=== PATIENT | female | born 1950 | race African-American/Black ===

== ENCOUNTER 2018-05-11 05:50 | Emergency (ER) | payer OTHER ==
[~2018-05-11] VITALS: Ht 160 cm; Wt 56.7 kg
[~2018-05-11 05:50] MED LIST: ATIVAN1 MG PO; CALCITRIOL0.5 MCG PO; CARDIZEM CD240 MG PO; CEFTIN 250 MG250 MG PO; CELEXA 10 MG TA10 M1 PO; CEPACOL SORE T1 EAC7 PO; CEPASTAT CHERR18 TA2 PO; CLONIDINE0.1 PO; COL-RITE100 MG PO; COREG25 MG PO; DEMADEX20 MG PO; DEX4 GLUCOSE1 EACH PO; DULCOLAX5 MG PO; DUONEB 2.5-0.5 M3 ML INH; FERRLECIT62.5 MG/2 IV; GLUCAGEN1 M2 IJ; HALOPERIDOL10 MG PO; HYDRALAZINE 2525 MG PO; HYDROCODONE-AP1 EAC6 PO; LASIX 80 MG TAB80 MG PO; LISINOPRIL10 MG PO; LORATIDINE 10 M10 M1 PO; LOXAPINE5 MG PO; MELATIN3 MG PO; MIRALAX17 GM PO; NEPHROCAPS SOFT1 CAP PO; NORCO 5-325 TA1 EACH PO; NOVOFINE INJECTION; NOVOLOG100 UNIT/1 SUBQ; ONDANSETRON HCL4 M2 PO; PRILOSEC20 MG PO; PROCRIT20000 UNIT IJ; PROTONIX40 M1 PO; REGLAN 10 MG TA10 MG PO; RENO CAPS SOFTGE1 MG PO; RENVELA800 MG PO; RISPERDAL 1 MG T1 MG PO; RISPERDAL0.5 MG PO; SIMETHICON CHEW80 M1 PO; TRAZODONE HCL50 MG PO; TRIHEXYPHENIDYL2 M1 NG; TRIHEXYPHENIDYL2 M1 PO; TUMS PO; TYLENOL325 MG PO; VENTOLIN HFA 1818 GM INH; ZESTRIL40 MG PO; ZOLOFT50 MG PO; [UNRECOGNIZED DRUG - CODE] IJ
[2018-05-11 05:54] VITALS: BP 160/62
[2018-05-11] MEDS ORDERED: EPOGEN2000 UNIT/ INJECTION (06:14)
[2018-05-11] MEDS ORDERED: CEPACOL SORETH1 EAC1 PO (06:17)
[2018-05-11] MEDS ORDERED: ROBITUSSIN100 MG/53 PO (06:19)
[2018-05-11] MEDS ORDERED: TESSALON PERLE100 MG PO (06:41)
== END 2018-05-11 06:51 ==
LOC: ER 05:50
DX: J06.9 Acute upper respiratory infection, unspecified (principal); R51 Headache; E11.9 Type 2 diabetes mellitus without complications; F20.9 Schizophrenia, unspecified; I11.0 Hypertensive heart disease with heart failure; I50.9 Heart failure, unspecified; K21.9 Gastro-esophageal reflux disease without esophagitis; F17.210 Nicotine dependence, cigarettes, uncomplicated; Z88.6 Allergy status to analgesic agent; Z88.8 Allergy status to other drugs, medicaments and biological substances

== ENCOUNTER 2019-04-27 12:28 | Emergency (ER) | payer OTHER ==
[~2019-04-27] VITALS: Ht 160 cm; Wt 51.3 kg
[~2019-04-27 12:28] MED LIST changes: +CEPACOL SORETH1 EAC1 PO; +EPOGEN2000 UNIT/ INJECTION; +ROBITUSSIN100 MG/53 PO; +TESSALON PERLE100 MG PO
[2019-04-27 15:21] LABS: HEMATOCRIT 36.3 % (37.0-47.0); HEMOGLOBIN 11.9 gm/dL (12.0-15.0); MCHC 32.8 g/dL (28.0-37.0); MCV 88.2 fL (80.0-100.0); PLATELET COUNT 214 thou/uL (150-400); RBC 4.11 mil/uL (4.20-5.00); RDW 15.7 % (10.5-14.5); WBC 5.2 thou/uL (4.0-11.0)
[2019-04-27 15:30] LABS: ANION GAP 7 mmol/L (7-16); BUN 16 mg/dL (7-18); CALCIUM 9.6 mg/dL (8.5-10.1); CHLORIDE 101 mmol/L (98-107); CO2 33 mmol/L (21-32); CREATININE 4.2 mg/dL (0.6-1.0); GLUCOSE 121 mg/dL (74-106); POTASSIUM 4.3 mmol/L (3.5-5.1); SODIUM 141 mmol/L (136-145)
[2019-04-27 15:40] LABS: ALBUMIN 3.4 g/dL (3.4-5.0); SGOT 30 U/L (15-37); SGPT 22 U/L (30-65); TOTAL BILIRUBIN 0.5 mg/dL (<0.1-1.0); TOTAL PROTEIN 7.8 g/dL (6.4-8.2); TROPONIN-I <0.06 ng/mL (<0.06)
[2019-04-27 15:47] LABS: ABSOLUTE NEUTROPHILS 2.8 thou/uL (1.4-8.2)
[2019-04-27 18:05] VITALS: BP 197/97
--- NOTE | 2019-04-28 10:15 | EKG ---
[place] [address] [facility] [place] [address] ELECTROCARDIOGRAM REPORT Name: ANTONIO DUTTONKAIRIC INGRAM [facility]: [facility] [id number] Admission: 04/27/19 Attend Phys: Discharge: 04/27/19 Date of : 54 Report #: [id number] THIS REPORT FOR: //name// [facility] ED Test Date: 2019-04-27 Test Time: 15:02:11 Pat Name: MEHUL DUTTON Department: Room: Gender: F [employer]: [employer] : 1950 Requested By: Mayela Graham Order Number: [id number] MD: Nefatli Montgomery Measurements Intervals [place] Rate: 96 P: 82 NC: 127 QRS: 27 QRSD: 75 T: 92 QT: 344 QTc: 435 Interpretive Statements Sinus rhythm Anteroseptal infarct, old Nonspecific repol abnormality, diffuse leads Compared to ECG 03/06/2016 19:44:18 No significant change was found Electronically Signed On 04-28-2019 10:14:48 MONITOR TECH by Neftali Montgomery [email or web address] <ELECTRONICALLY SIGNED> By: Neftali Montgomery MD, [facility] 04/28/19 1014 150 01 Neftali Montgomery MD, [facility] /EPI
== END 2019-04-27 18:05 | disposition home or self-care (01) ==
LOC: ER 12:28
PROVIDERS: Physician Assistant
DX: I10 Essential (primary) hypertension (principal); R06.00 Dyspnea, unspecified; I13.2 Hypertensive heart and chronic kidney disease with heart failure and with stage 5 chronic kidney disease, or end stage renal disease; I50.9 Heart failure, unspecified; E11.22 Type 2 diabetes mellitus with diabetic chronic kidney disease; F32.9 Major depressive disorder, single episode, unspecified; F41.9 Anxiety disorder, unspecified; N18.6 End stage renal disease; K21.9 Gastro-esophageal reflux disease without esophagitis; F17.210 Nicotine dependence, cigarettes, uncomplicated; Z86.2 Personal history of diseases of the blood and blood-forming organs and certain disorders involving the immune mechanism; Z99.2 Dependence on renal dialysis; Z79.4 Long term (current) use of insulin; Z88.6 Allergy status to analgesic agent; Z88.8 Allergy status to other drugs, medicaments and biological substances

== ENCOUNTER 2019-06-17 14:53 | Inpatient (IN) | payer OTHER ==
[~2019-06-17] VITALS: Ht 160 cm; Wt 50.3 kg
--- NOTE | ~2019-06-17 | HC ---
[facility] [place] [address] [place] [place] [address] CONSULTATION Name: MEHUL DUTTON Room #: 360-P ADM IN M.R.#: [id number] Admission: 06/17/19 Attend Phys: Matty Link MD Discharge: Date of : 54 Report #: [id number] THIS REPORT FOR: cc: YANELI Smith family physician/PCP YANELI - Sarah family physician/PCP Sudhir Otoole MD ~ CC: Matty GROVES physician/PCP DATE OF SERVICE: 06/18/2019 REASON FOR CONSULTATION: End-stage renal disease. REASON FOR PRESENTATION: Shortness of breath. HISTORY OF PRESENT ILLNESS: This is a very well-known patient to me. She is a 68-year-old with end-stage renal disease, was maintained on hemodialysis every Sunday, and Sunday. The patient was in the dialysis unit yesterday and started to get tachycardic and reported to the nurses that she wants to get off the dialysis. She was brought to the Emergency Room. She had 3 hours of dialysis treatment. In the Emergency Room, she was found to be hypoxemic with some evidence of pulmonary edema. She has end-stage renal disease due to longstanding diabetic nephropathy. She dialyzes every Sunday, and Sunday. She has very difficult to control blood pressure in the outpatient setting because of noncompliance with the medication. Unfortunately, the patient has paranoid schizophrenia. She had been in numerous nursing facilities in the past. Most of her blood pressure readings and her volume conditions are remarkably very well when the patient is in the facility; however, when the patient gets out of a controlled environment, unfortunately she does not get any help from her family members and her blood pressure starts to be out of control. She is currently feeling okay. She did report to me her wishes to be back in a nursing facility for her ongoing issues. PAST MEDICAL HISTORY: 1. End-stage renal disease, maintained on hemodialysis. 2. Diabetes mellitus. 3. Schizophrenia. 4. Hypertension. PAST SURGICAL HISTORY: AV graft. ALLERGIES: ASPIRIN. MEDICATIONS: 1. Clonidine. 2. Carvedilol. [facility] [address] [place] [address] CONSULTATION Name: MARIJAANTONIOMARY INGRAM Room #: 360-[facility] IN .R.#: [id number] Admission: 06/17/19 Attend Phys: Matty Link MD Discharge: Date of : 54 Report #: [id number] 3. Diltiazem. 4. Lisinopril. 5. Risperidone. 6. Trazodone. REVIEW OF SYSTEMS: GENERAL: Significant for shortness of breath. CARDIOVASCULAR: Significant for chest pain or shortness of breath. PULMONARY: As per the history of present illness. GASTROINTESTINAL: No nausea or vomiting. GENITOURINARY: No frequency. She is still making urine. FAMILY HISTORY: Significant for hypertension. SOCIAL HISTORY: She now lives with her son. PHYSICAL EXAMINATION: GENERAL: She is alert, oriented, in no apparent distress. VITAL SIGNS: Blood pressure is 170/82. HEAD AND NECK: No jugular venous distention. CHEST: Bilateral crackles. CARDIOVASCULAR: No rub. ABDOMEN: Soft, nontender. EXTREMITIES: Lower extremities, +1 edema. Upper extremities, left upper extremity swelling. LABORATORY DATA: Reviewed. Sodium 137, potassium 4.2, BUN is 22, creatinine is 4.2. Hemoglobin is 10.0. IMPRESSION AND PLAN: 1. End-stage renal disease. 2. Pulmonary edema. 3. Ongoing social issues. 4. Diabetes mellitus. 5. Hypertension. 6. Dry ultrafiltration today. 7. Hemodialysis tomorrow. 8. We will discuss with the primary team regarding a placement. This patient does extremely well in a [facility] facility and when she gets out of the facility, her overall condition deteriorates, her blood [facility] [address] [place] [address] CONSULTATION Name: MEHUL DUTTON MARGOTHRUPALI Room #: 360-[facility] IN M.R.#: [id number] Admission: 06/17/19 Attend Phys: Matty Link MD Discharge: Date of : 54 Report #: [id number] pressure gets out of control due to noncompliance with medication and she will need major social support. By: [id number] Sudhir Otoole MD /nt
[2019-06-17 15:22] LABS: BASOPHILS 1.3 % (0.0-2.0); EOSINOPHILS 4.2 % (0.0-3.0); HEMATOCRIT 30.6 % (37.0-47.0); LYMPHOCYTES 17.5 % (24.0-44.0); MCH 30.1 pg (26.0-34.0); MCHC 32.7 g/dL (28.0-37.0); MONOCYTES 7.6 % (1.0-8.0); PLATELET COUNT 170 thou/uL (150-400); POLYS 69.4 % (36.0-66.0); RBC 3.32 mil/uL (4.20-5.00); RDW 17.9 % (10.5-14.5); WBC 4.3 thou/uL (4.0-11.0)
[2019-06-17 15:38] LABS: ANION GAP 7 mmol/L (7-16); BUN 15 mg/dL (7-18); CALCIUM 8.7 mg/dL (8.5-10.1); CHLORIDE 97 mmol/L (98-107); CO2 32 mmol/L (21-32); GLUCOSE 185 mg/dL (74-106); POTASSIUM 3.7 mmol/L (3.5-5.1); SODIUM 136 mmol/L (136-145)
[2019-06-17 15:44] LABS: ALBUMIN 3.1 g/dL (3.4-5.0); SGOT 30 U/L (15-37); SGPT 14 U/L (30-65); TOTAL BILIRUBIN 0.4 mg/dL (<0.1-1.0); TOTAL PROTEIN 6.8 g/dL (6.4-8.2); TROPONIN-I <0.06 ng/mL (<0.06)
[2019-06-17] MEDS ORDERED: NORVASC 2.5 MG2.5 M1 PO (16:11)
[2019-06-17] MEDS ORDERED: MYNEPHRON CAPSUL1 MG PO (16:13)
[2019-06-17] MEDS ORDERED: CLONIDINE HCL0.3 M3 PO (16:14)
[2019-06-17] MEDS ORDERED: LISINOPRIL2.5 MG PO (16:15)
[2019-06-17] MEDS ORDERED: HALDOL 0.5 MG0.5 MG PO (16:15)
[2019-06-17] MEDS ORDERED: PROTONIX40 M4 PO (16:15)
[2019-06-17] MEDS ORDERED: RISPERIDONE 00.25 MG PO (16:16)
[2019-06-17] MEDS ORDERED: SERTRALINE HCL100 MG PO (16:16)
[2019-06-17] MEDS ORDERED: TRAZODONE 150150 M1 PO (16:17)
[2019-06-17 19:26] VITALS: BP 236/107
--- NOTE | 2019-06-17 19:45 | NUR ---
Left upper arm fistula still cannulated with syringe and tubing, removed , and pressure applied and then 4x4 and sonali wrap. No bleeding.
[2019-06-17 20:54] VITALS: BP 220/81
[2019-06-18 00:15] VITALS: BP 171/72
[2019-06-18 03:35] VITALS: BP 122/67
--- NOTE | 2019-06-18 05:22 | NUR ---
Pt. arrived from ER around 0 on a BIPAP at 75%. Maintaining O2 sat in the mid 90's on current settings. Taken off BIPAP while pt. eating since she c/o being hungry and has not eaten since breakfast. O2 sat down to upper 80's while on 5L/NC , titrated up to 6L then O2 sat in the low 90's. Assisted to use commode upon arrival and voided 25 ml. Left upper arm AV dialysis access with + thrill and bruit covered with BELKIS wrap. Elevated BP now better after scheduled BP med given at HS. SR per tele. SCD's on for DVT prophylaxis. Bed alarm on for safety. Med rec partly done due to pt. does not remember all of her meds. Son suggested to call pt.'s daughter today for a complete list of meds. Pt. slept well during the night. Making progress towards care plan goals.
[2019-06-18 06:40] LABS: CALCIUM 9.1 mg/dL (8.5-10.1); POTASSIUM 4.2 mmol/L (3.5-5.1)
[2019-06-18 06:51] LABS: CREATININE 4.2 mg/dL (0.6-1.0)
[2019-06-18 07:39] VITALS: BP 172/81
[2019-06-18 16:02] VITALS: BP 163/64
--- NOTE | 2019-06-18 16:05 | 2DMMODE ---
[facility] [place] [address] [place] [address] 2 D/M-MODE ECHOCARDIOGRAM Name: MEHUL DUTTON Room #: 360-P ADM IN M.R.#: [id number] Admission: 06/17/19 Attend Phys: Matty Link MD Discharge: Date of : 54 Report #: [id number] THIS REPORT FOR: cc: YANELI - No family physician/PCP FAM - No family physician/PCP Neftali Montgomery MD [facility] ~ APPROVED REPORT Study performed: 06/18/2019 13:05:59 EXAM: Comprehensive 2D, Doppler, and color-flow Echocardiogram Patient Location: Echo lab Room #: 360 Status: routine BSA: 1.48 HR: 72 bpm BP: 172/81 mmHg Rhythm: NSR Other Information Study Quality: Adequate Technically limited study due to COPD and thin body habitus. Indications Congestive Heart Failure CHF Hx: DM, HTN, SOB 2D Dimensions RVDd: 19.34 mm IVSd: 15.48 (7-11mm) LVOT Diam: 18.26 (18-24mm) LVDd: 41.67 mm PWd: 13.00 (7-11mm) LVDs: 29.22 (25-40mm) Aortic Root: 26.64 mm IVC: 17.00 mm Volumes Left Atrial Volume (Systole) Single Plane 4CH: 46.90 mL Single Plane 2CH: 83.18 mL LA ESV Index: 50.00 mL/m2 Aortic Valve AoV Peak Neptali.: 1.39 m/s AO Peak Gr.: 7.70 mmHg LVOT Max P.99 mmHg [facility] [address] [place] [address] 2 D/M-MODE ECHOCARDIOGRAM Name: MEHUL DUTTON Room #: 360-[facility] IN .R.#: [id number] Admission: 06/17/19 Attend Phys: Akira Kidd Discharge: Date of : 54 Report #: [id number] LVOT Max V: 0.87 m/s MERVIN Vmax: 1.63 cm2 Mitral Valve E/A Ratio: 2.0 MV Decel. Time: 106.35 ms MV E Max Neptali.: 1.33 m/s MV A Neptali.: 0.67 m/s MV PHT: 30.84 ms IVRT: 50.75 ms Pulmonary Valve PV Peak Neptali.: 1.13 m/s PV Peak Gr.: 5.14 mmHg Pulmonary Vein P Vein S: 0.55 m/s P Vein A: 0.19 m/s P Vein D: 0.67 m/s P Vein A Dur.: 110.7 msec P Vein S/D Ratio: 0.82 Tricuspid Valve TR Peak Neptali.: 3.30 m/s TR Peak Gr.: 43.66 mmHg PA Pressure: 49.00 mmHg Left Ventricle The left ventricle is normal size. There is normal LV segmental wall motion. Moderate concentric left ventricular hypertrophy. Consider hypertensive or hypertrophic cardiomyopathy Left ventricular systolic function is normal. LVEF is 55-60%. Severe diastolic dysfunction Right Ventricle The right ventricle is normal size. The right ventricular systolic function is normal. Atria Left atrium is severely dilated. The right atrium size is normal. Aortic Valve The aortic valve is mildly calcified. No aortic regurgitation is present. There is no aortic valvular stenosis. Mitral Valve There is mitral annular calcification. Moderate mitral regurgitation. No evidence of mitral valve stenosis. [facility] [address] [place] [address] 2 D/M-MODE ECHOCARDIOGRAM Name: MEHUL DUTTON Room #: 360-P [facility] IN M.R.#: [id number] Admission: 06/17/19 Attend Phys: Akira Kidd Discharge: Date of : 54 Report #: [id number] Tricuspid Valve The tricuspid valve is normal in structure. Mild tricuspid regurgitation. Estimated PAP is 45 mmHg. Pulmonic Valve The pulmonary valve is normal in structure. There is no pulmonic valvular regurgitation. Great Vessels The aortic root is normal in size. IVC is normal in size and collapses >50% with inspiration. Pericardium There is no pericardial effusion. <Conclusion> Left ventricular systolic function is normal. Moderate concentric left ventricular hypertrophy. Consider hypertensive or hypertrophic cardiomyopathy There is normal LV segmental wall motion. LVEF is 55-60%. Severe diastolic dysfunction Left atrium is severely dilated. The aortic valve is mildly calcified. No aortic regurgitation or stenosis There is mitral annular calcification. Moderate mitral regurgitation. Mild tricuspid regurgitation. Estimated pulmonary artery pressure of 50 mmHg. There is no pericardial effusion. <ELECTRONICALLY SIGNED> By: Neftali Montgomery MD, FACC 06/18/19 1604 1604 1604 Neftali Montgomery MD, FACC /INF
--- NOTE | 2019-06-18 18:04 | NUR ---
Consult rec'd for half-way placement per Renal. Class B Driver visited with the pt at bedside. She is a&ox4 but forgetful at times. She indicates that she lives with her son Sridhar and his girlfriend in an apt in [place]. She has home o2 at 4liters but no other dme. She goes to [facility] for dialysis and [facility] transport. She is interested in SNF stay and ltc or possible [facility] [place]. She reports that her mother lives at [facility] and that she has been to [facility] in the past. She would consider either of these but wants cm to contact her son Sridhar to discuss options and even facilities in [place] as well. She reports feeling very weak and having trouble going outside the apt. Renal indicates she does better with her med mngt and f/u care when she is in a structured setting. Message left at Sridhar's number to contact the unit cm regarding dc planning needs. Nursing updated. Will ask the dc master planner to fax referrals to [facility] and [facility] for SNF with possible transition to ltc or RCF. Pt was in dialysis this afternoon during our conversation. Therapy evals are pending.
--- NOTE | 2019-06-18 19:48 | NUR ---
PT A&OX4. AMBULATES WITH ASSIST X1. R FA PIV INTACT. L ARM FISTULA INTACT. PT FINISHED DIALYSIS APPROX. 1830. PT GIVEN COREG AND CLONIDINE THAT WAS HELD DUE TO DIALYSIS. CALL LIGHT W/I REACH.
[2019-06-18 19:50] VITALS: BP 183/79
--- NOTE | 2019-06-19 03:57 | NUR ---
VSS-AFEBRILE. LUNGS CLEAR/DIMINSHED IN ALL JACINTO BILATERALLY. RESTED WELL THROUGH NIGHT WITH FEW NEEDS. NO C/O PAIN. CALLS APPROPRIATELY FOR ANY NEEDED ASSISTANCE.
[2019-06-19 03:58] VITALS: BP 152/47
[2019-06-19 08:19] VITALS: BP 187/69
[2019-06-19] MEDS ORDERED: DOXYCYCLINE HYC50 MG PO (11:05)
--- NOTE | 2019-06-19 14:13 | NUR ---
DISCHARGE PLANNING. ANTICIPATED DISCHARGE POSSIBLY TOMORROW. POST ACUTE RECOMMENDED AT DISCHARGE WITH TRANSITION TO [facility] OR ASSISTED LIVING PLACEMENT. PATIENT REFERRAL [facility]ED TO [facility]. NOTIFIED [facility] OF PATIENTS DISCHARGE PLAN. CALL RECEIVED FROM [facility]. ACCEPTING OF PATIENT AT DISCHARGE. UNIT SW NOTIFIED. PATIENT REFERRAL FAXED TO [facility]. CALL RECEIVED FROM [facility]. BUD STATES REFERRAL IS UNDER REVIEW AND WILL NOTIFY CM ONCE REVIEW HAS BEEN COMPLETED. UNIT SW NOTIFIED. FOLLOWING.
--- NOTE | 2019-06-19 15:47 | NUR ---
RADHA reviewed chart and spoke with nursing and attending physician. Pt is progressing towards goals for discharge. Pt is currently off the unit having dialysis. Psych consulted. RADHA spoke with pt's son, Sridhar, via phone to provide udpate and to discuss discharge plan. Sridhar states that family preference is for pt to go to [facility] SNF. [facility] is able to accept pt. Discharge is anticipated for tomorrow. RADHA is following to assist as needed with discharge planning.
[2019-06-19 16:36] VITALS: BP 190/57
--- NOTE | 2019-06-19 16:55 | NUR ---
ASSUMED CARE OF PT AT 0700. PT AOX4 IN NO ACUTE DISTRESS. DIALYZED FOR 2.5L TODAY. BP REMAINS HIGH - BP MEDS PROVIDED. ANTICIPATE D/C TO [facility] TOMORROW. PSYCH CONSULT CALLED.
--- NOTE | 2019-06-19 20:21 | NUR ---
PATIENT TRANSFERRED FROM [facility], REPORT FROM BRAD/AAMIR. POSSIBLE DISCHARGE TOMORROW TO [facility]. DIALYSIS TODAY 2.5 OFF. UP WITH SBA. A&O, CAN GET CONFUSED, BUT PLEASANT. WILL CONTINUE TO MONITOR.
[2019-06-19 20:30] VITALS: BP 179/73
--- NOTE | 2019-06-20 04:33 | NUR ---
PATIENT ALERT AND ORIENTED X4. UP ADLIB IN ROOM AND HALLWAY. C/O NOT BEING ABLE TO SLEEP AND GIVEN ZOFRAN WITH GOOD REESULTS. BS MONITORED PER ORDER. PATIENT PLEASANT AND COOPERATIVE. REVEIVED DIALYSIS SUNDAY. PATIENT HAS LEFT ARM FISTULA WITH A BRUITT AND THRILL. SNACK GIVEN. RESTING QUIETLY AT TIME OF NOTE. WILL MONITOR.
[2019-06-20 07:04] VITALS: BP 175/81
[2019-06-20] MEDS ORDERED: HYDRALAZINE 2525 MG PO (12:16)
[2019-06-20] MEDS ORDERED: RISPERDAL 1 MG T1 MG PO (13:59)
[2019-06-20] MEDS ORDERED: HALDOL 0.5 MG0.5 MG PO (13:59)
[2019-06-20 14:36] VITALS: BP 136/61
--- NOTE | 2019-06-20 16:07 | NUR ---
DISCHARGE NOTE: RADHA reviewed chart and spoke with nursing and attending physician. Pt was transferred to [facility] from and is medically stable for discharge to [facility] SNF today. Pt will resume her regular dialysis tomorrow as [facility]. RADHA spoke with staff at [facility] to notify of pt's discharge. Pt's normal dialysis scheduled is T-R-S at 1115. SW met with pt to discuss discharge plan. Pt is aware and agreeable with discharge plan. materials planner/production planner to fax discharge orders/summary to [facility] and [facility] and notify family of pt's discharge. Chart copy requested. Nursing to call report. No additional SW needs identified at this time, but is available to assist should needs arise.
--- NOTE | 2019-06-20 16:35 | NUR ---
PT RECOMMENDED [facility]ALKER UPON D/C. PER CM AND DC, FACILTY PT WILL BE GOING WILL ARRANGE ONCE PT DISCHARGES;
[2019-06-20 17:43] VITALS: BP 136/61
--- NOTE | 2019-06-20 19:17 | NUR ---
ASSUMED PT CARE AROUND 714. AXOX4. CLAERED BY PT FOR AD TREVER. RECEIVED ORDER TO D/C TO [facility]. REPORT CALLED [facility]. IV REMOVED. TRANSPORTATION WAS SET UP AROUND 1929, TRANSPORATION NEVER CARE. CALLED SW [employer]. MELYSSA SAID GO AHEAD AND CALL [facility] AND CHART TO . CALLED TRANSPORTATION GOT AN ETA. [facility] CALLED UPDATED ON NEW ETA. NOC RN UPDATED FOR D/C PLAN. CARE TRANSFERRED TO INCOMING RN AT THIS TIME.
== END 2019-06-20 21:28 | DRG 291 ==
LOC: ER 14:53 → 3W 18:32 → EROBS 18:32 → 3W 20:44 → 4N 06-19 18:44
PROVIDERS: Emergency Medicine; Nurse Practitioner Family; ADMIT Hospitalist
PROC: 5A1D70Z Performance of Urinary Filtration, Intermittent, Less than 6 Hours Per Day (ICD-10-PCS; principal; 2019-06-18)
DX: I13.2 Hypertensive heart and chronic kidney disease with heart failure and with stage 5 chronic kidney disease, or end stage renal disease (principal); N18.6 End stage renal disease; J96.01 Acute respiratory failure with hypoxia; I50.33 Acute on chronic diastolic (congestive) heart failure; Z68.1 Body mass index [BMI] 19.9 or less, adult; F32.9 Major depressive disorder, single episode, unspecified; E11.22 Type 2 diabetes mellitus with diabetic chronic kidney disease; F20.9 Schizophrenia, unspecified; K21.9 Gastro-esophageal reflux disease without esophagitis; F17.210 Nicotine dependence, cigarettes, uncomplicated; D53.9 Nutritional anemia, unspecified; E11.43 Type 2 diabetes mellitus with diabetic autonomic (poly)neuropathy; K31.84 Gastroparesis; K59.00 Constipation, unspecified; R63.4 Abnormal weight loss; Z88.8 Allergy status to other drugs, medicaments and biological substances; Z82.49 Family history of ischemic heart disease and other diseases of the circulatory system; Z99.2 Dependence on renal dialysis; Z86.19 Personal history of other infectious and parasitic diseases; Z79.891 Long term (current) use of opiate analgesic; Z79.899 Other long term (current) drug therapy
CPT/HCPCS: 10790; 10879; 32100